=== PATIENT | female | born 1995 | race Caucasian/White ===

== ENCOUNTER 2018-09-20 11:43 | Emergency (ER) | payer BC ==
--- NOTE | 2018-09-20 11:53 | EDM.PDOCBH ---
ED HPI GENERAL MEDICAL PROBLEM - General Chief Complaint: Behavioral/Psych Stated Complaint: IN PT TREATMENT Time Seen by Provider: 09/20/18 11:51 Source of Information: Reports: Patient History Limitations: Reports: No Limitations - History of Present Illness INITIAL COMMENTS - FREE TEXT/NARRATIVE: HISTORY AND PHYSICAL: History of present illness: Patient is a 23-year-old female who presents to the emergency room with suicidal ideations. She states over the past 3-4 months she has had increase in her depression and thoughts of self-harm. Yesterday she voiced to her family that she was having thoughts of harming herself. She states she does not have a specific plan. Family reports that she has made several statements of wanting to harm herself to various family members over the past several months. The sister states they had more concerned today as the patient was tearful and asking to seek help. Patient had previously been hospitalized approximately 5 years ago for suicidal ideation. She states she has not been on any medications for depression or any other mental health concerns since that time. Her committed suicide about 1 year ago. The sister at bedside states that the patient has not been doing well since his and she has not been "coping well". She denies any alcohol or drug abuse. Review of systems: As per history of present illness and below otherwise all systems reviewed and negative. Past medical history: As per history of present illness and as reviewed below otherwise noncontributory. Surgical history: As per history of present illness and as reviewed below otherwise noncontributory. Social history: See social history for further information Family history: As per history of present illness and as reviewed below otherwise noncontributory. Physical exam: General: Well-developed and well-nourished 23-year-old female. Alert and oriented. Patient is flat affect and avoids eye contact. Nontoxic appearing and in no acute distress. HEENT: Atraumatic, normocephalic, pupils equal and reactive bilaterally, negative for conjunctival pallor or scleral icterus, mucous membranes moist, TMs normal bilaterally, throat clear, neck supple, nontender, trachea midline. No drooling or trismus noted. No meningeal signs. No hot potato voice noted. Lungs: Clear to auscultation, breath sounds equal bilaterally, chest nontender. Heart: S1S2, regular rate and rhythm without overt murmur Abdomen: Soft, nondistended, nontender. Negative for masses or hepatosplenomegaly. Negative for costovertebral tenderness. Pelvis: Stable nontender. Genitourinary: Deferred. Rectal: Deferred. Skin: Intact, warm, dry. No lesions or rashes noted. Extremities: Atraumatic, negative for cords or calf pain. Neurovascular unremarkable. Neuro: Awake, alert, oriented. Cranial nerves II through XII unremarkable. Cerebellum unremarkable. Motor and sensory unremarkable throughout. Exam nonfocal. Notes: 1225: Dr Ryan from [facility] has accepted this patient. Patient is agreeable and aware. Vital signs are stable. EMS has been activated to transport this patient. We'll continue to monitor. Diagnostics: CBC, CMP, TSH, acetaminophen, salicylate, urine, drug screen, EtOH, urine Therapeutics: None Prescription: None Impression: Suicidal Ideation Plan: Transfer to [facility] via ground EMS Definitive disposition and diagnosis as appropriate pending reevaluation and review of above. - Related Data Allergies Allergy/AdvReac Type Severity Reaction Status Date / Time No Known Allergies Allergy Verified 09/20/18 12:12 Home Meds: Home Meds . [No Known Home Meds] 09/20/18 [History] ED ROS GENERAL - Review of Systems Review Of Systems: ROS reveals no pertinent complaints other than HPI. ED EXAM, BEHAVIORAL HEALTH - Physical Exam Exam: See Below (See dictation) COURSE, BEHAVIORAL HEALTH COMP - Course Vital Signs: Last Vital Signs Temp 98.2 F 09/20/18 12:41 Pulse 73 09/20/18 12:41 Resp 16 09/20/18 12:41 BP 127/89 09/20/18 12:41 Pulse Ox 98 09/20/18 12:41 Orders, Labs, Meds: Active Orders 24 hr Category Date Time Status ACETAMINOPHEN [CHEM] Stat Lab 09/20/18 11:51 Ordered CBC WITH AUTO DIFF [HEME] Stat Lab 09/20/18 11:51 Ordered COMPREHENSIVE METABOLIC PN,CMP [CHEM] Stat Lab 09/20/18 11:51 Ordered ETHANOL BLOOD MEDICAL [CHEM] Stat Lab 09/20/18 11:51 Ordered SALICYLATE [CHEM] Stat Lab 09/20/18 11:51 Ordered TSH [CHEM] Stat Lab 09/20/18 11:51 Ordered Laboratory Tests 09/20/18 09/20/18 09/20/18 Range/Units 12:16 12:16 12:16 Urine Color YELLOW Urine Appearance CLEAR Urine pH 6.0 (5.0-8.0) Ur Specific [place] <= 1.005 (1.001-1.035) Urine Protein NEGATIVE (NEGATIVE) mg/dL Urine Glucose (UA) NEGATIVE (NEGATIVE) mg/dL Urine Ketones NEGATIVE (NEGATIVE) mg/dL Urine Occult Blood NEGATIVE (NEGATIVE) Urine Nitrite NEGATIVE (NEGATIVE) Urine Bilirubin NEGATIVE (NEGATIVE) Urine Urobilinogen 0.2 (<2.0) EU/dL Ur Leukocyte Esterase NEGATIVE (NEGATIVE) Urine HCG, Qual NEGATIVE (NEGATIVE) Urine Opiates Screen NEGATIVE (NEGATIVE) Ur Oxycodone Screen NEGATIVE (NEGATIVE) Urine Methadone Screen NEGATIVE (NEGATIVE) Ur Barbiturates Screen NEGATIVE (NEGATIVE) Ur Phencyclidine Scrn NEGATIVE (NEGATIVE) Ur Amphetamine Screen NEGATIVE (NEGATIVE) U Methamphetamines Scrn NEGATIVE (NEGATIVE) U Benzodiazepines Scrn NEGATIVE (NEGATIVE) U Cocaine Metab Screen NEGATIVE (NEGATIVE) U Marijuana (THC) Screen NEGATIVE (NEGATIVE) Departure - Departure Time of Disposition: 12:53 Disposition: DC/Tfer to Psych Hosp/[facility] Clinical Impression: Suicidal ideation - Discharge Information Referrals: PCP,None [Primary Care Provider] - Forms: ED Department Discharge - My Orders Last 24 Hours: My Active Orders 09/20/18 11:51 ACETAMINOPHEN [CHEM] Stat CBC WITH AUTO DIFF [HEME] Stat COMPREHENSIVE METABOLIC PN,CMP [CHEM] Stat ETHANOL BLOOD MEDICAL [CHEM] Stat SALICYLATE [CHEM] Stat TSH [CHEM] Stat - Assessment/Plan Last 24 Hours: My Active Orders 09/20/18 11:51 ACETAMINOPHEN [CHEM] Stat CBC WITH AUTO DIFF [HEME] Stat COMPREHENSIVE METABOLIC PN,CMP [CHEM] Stat ETHANOL BLOOD MEDICAL [CHEM] Stat SALICYLATE [CHEM] Stat TSH [CHEM] Stat
[2018-09-20 13:30] LABS: CHLORIDE,CL 105 mmol/L (98-107); SODIUM,NA 144 mmol/L (136-145)
[2018-09-20 13:47] VITALS: BP 130/84
== END 2018-09-20 14:25 ==
LOC: MW.ED 11:43
DX: R45.851 Suicidal ideations (principal)
CPT/HCPCS: 36415; 80053; 80305; 81003; 81025; 84443; 85025; 99285; G0480; 99284

== ENCOUNTER 2023-08-10 12:44 | Emergency (ER) | payer BC ==
[2023-08-10 12:53] VITALS: BP 141/88; PULSE 100
== END 2023-08-10 13:30 | disposition home or self-care (01) ==
LOC: MW.ED 12:44
DX: K04.7 Periapical abscess without sinus (principal); F17.210 Nicotine dependence, cigarettes, uncomplicated
CPT/HCPCS: 99282; 99283

== ENCOUNTER 2023-11-30 16:18 | Emergency (ER) | payer BC ==
[2023-11-30 17:10] VITALS: BP 131/87; PULSE 95
== END 2023-11-30 17:20 | disposition home or self-care (01) ==
LOC: MW.ED 16:18
DX: K02.9 Dental caries, unspecified (principal); Z75.8 Other problems related to medical facilities and other health care
CPT/HCPCS: 99282; 99283